=== PATIENT | female | born 1950 | race Caucasian/White ===

== ENCOUNTER 2018-12-22 09:00 | Outpatient (RCR) | payer OTHER, SELFPAY ==
--- NOTE | 2018-10-07 15:16 | PT.OIE ---
Current Diagnoses Cystocele, unspecified (10/07/18) Past Surgical History History of carpal tunnel repair History of tonsillectomy Status post appendectomy Status post knee surgery Status post tubal ligation Provider Visit Care Team Role Provider Type Darvin Bagley MD Primary Care Provider Physician Specialty: Family Practice Address: [address] [place] [address], [id number] Email: MARY Flores Attending Provider Advanced Support Architect Specialty: Medical Address: [address] [place] [address], [id number] Email: Physical Therapy Initial Evaluation PT-OP-A Visit Information Start: 10/07/18 07:32 Freq: Status: Active Protocol: Document 10/07/18 13:45 AMB (Rec: 10/07/18 13:48 AMB [id number]) Out-Patient Physical Therapy Visit Information Visit Information Visit Type Initial Evaluation Visit Start Time 13:45 Visit Stop Time 14:30 Total Visit Minutes 45 Visit Number 1 PT-OP-B Current Condition Start: 10/07/18 07:32 Freq: Status: Active Protocol: Document 10/07/18 13:45 AMB (Rec: 10/08/18 07:57 AMB [email or web address]) Current Condition History of Current Condition Onset Date chronic Current Complaints prolapse History of Current Condition Ev states she has had a little bit of stress incontinence with things like jumping since she was a kid and thought it was just normal . She attends PT because she was sitting in a deep chair a few months ago and felt a pressure in her vagina. Velasco went to her PCP and then her OBGYN and they confirmed that she has a cystocele. She also describes a history of urge incontinence which came on later in life but has also been present for some time. Triggers include running water , she feels that she needs to go immediately when she gets the urge to urinate or else she has a large leak. Her main concern is her prolapse since she has been dealing with both stress and urge incontinence for some time. She has had 3 children all vaginal deliveries with episiotomies, she does not recall incontinence being worse around her pregancies or post but it is difficult to remember. She is taking estradiol. Treatment Goals Patient/Caregiver Goals Reduce symptoms of prolapse. Prior Functional Status Baseline Function- ADL's Independent Baseline Function- Mobility Independent Current Functional Impairments (Reported) Functional Limitations- ADL's cough, sneeze, jump, urge all cause leak Functional Limitations- Mobility/Gait More aware of prolapse with sit to stand, lifting. Personal Factors Other Personal Factors That May Effect depression/anxiety, bipolar Therapy/Recovery PT-OP-C Subjective Start: 10/07/18 07:32 Freq: Status: Active Protocol: Document 10/07/18 13:45 AMB (Rec: 10/07/18 15:51 AMB [email or web address]) Patient Questionnaires Pelvic Pain and Urgency/Frequency Patient Symptom Scale Pelvic Pain Score 6 PT-OP-I Pelvic Floor Start: 10/07/18 07:32 Freq: Status: Active Protocol: Document 10/07/18 13:45 AMB (Rec: 10/08/18 07:57 AMB [email or web address]) Pelvic Floor Assessment Urine Pelvic Floor Surgery tubal ligation Urinary Symptoms Urge Sensation Prolapse Hesitancy Falling Out Feeling/Heavy Leakage Size Large Leakage Cause Cough Exercise Sneeze Urge Voiding Frequency 5x/day Nocturia 3 Bowel Bowel Surgery No Other Bowel Symptoms denies constipation Pelvic Clock Pelvic Clock Other No gaurding or pain with palpation noted Prolapse Cystocele Grade 2 Perineal Descent Resting Absent Bearing Present Contraction Ability Voluntary Contraction Weak Voluntary Relaxation Moderate Manual Muscle Testing Left 2 Manual Muscle Testing Right 2 Manual Muscle Testing Anterior 2 Manual Muscle Testing Posterior 3 Muscle Endurance (Seconds) 5 Number of Quick Contractions In 10 4 Seconds Comments Pelvic Floor Comments Pt presents with cystocele visible at baseline, more pronounced with valsalva, needed cues for contraction of pelvic floor vs abdominals. Stronger posteriorly at rectal musculature than anteriorly. PT-OP-Q Treatments Start: 10/07/18 07:32 Freq: Status: Active Protocol: Document 10/07/18 13:45 AMB (Rec: 10/07/18 15:51 AMB [email or web address]) Therapeutic Exercises Supine Exercises 2 Supine Exercise Name long holds Reps/Minutes 5x5 1 Supine Exercise Name quick flicks Reps/Minutes 10 Comments vc for lift, avoid abdominals PT-OP-T Assessment and Plan Start: 10/07/18 07:32 Freq: Status: Active Protocol: Document 10/07/18 13:45 AMB (Rec: 10/08/18 08:15 AMB [email or web address]) Physical Therapy Assessment Rehab Potential Rehabilitation Potential Good Evaluation Complexity Number of Personal Factors/Comorbidities 1-2 Number of Body Systems Impaired 1-2 Clinical Presentation at Evaluation Stable Impairments Impairments Functional Activities Strength Goals Two Impairment Pelvic floor strength Short Term Goal (STG) Ev will improve her pelvic floor strength to 3/5 in all planes. STG Duration 5 weeks Cleaner Touch Up Worker Goal (LTG) Ev will improve her pelvic floor strength so that she can contract her pelvic floor while squatting. LTG Duration 10 weeks One Impairment Continence Short Term Goal (STG) Ev will be able to delay the need to urinate for 5 minutes after initial urge. STG Duration 5 weeks Nursing Home Goal (LTG) Ev will be able to lift a bag of potting soil without leaking. LTG Duration 10 weeks Assessment Summary Assessment Ev presents with cystocele, stress and urge urinary incontinence. She presented with poor pelvic floor strength and poor body mechanics history with holding her breath with lifting. While her main concern is her prolapse, she will benefit from pelvic floor strengthening and behavioral education to reduce her incontinence episodes as well. Physical Therapy Plan Frequency and Duration Frequency of Treatment 1x/Week Duration of Treatment 10 weeks Plan of Care Start Date 10/07/18 Plan of Care End Date 12/16/18 Therapeutic Interventions Therapeutic Interventions Home Exercise Program Manual Therapy Neuromuscular Re-education Self-Care/Home Management Therapeutic Activities Therapeutic Exercises Modalities Biofeedback Electric Stimulation Next Visit Focus/Plan Next Note Type Treatment Note Next Visit Plan sEMG, review urge suppression, consider bladder diary
--- NOTE | 2018-10-07 15:20 | PT.OPPOC ---
Current Diagnoses Cystocele, unspecified (10/07/18) Provider Visit Care Team Role Provider Type Darvin Bagley MD Primary Care Provider Physician Specialty: Family Practice Address: [address] [place] [address], [id number] Email: MARY Flores Attending Provider Advanced Wrapping Clerk Specialty: Medical Address: [address] [place] [address], [id number] Email: Plan Of Care PT-OP-T Assessment and Plan Start: 10/07/18 07:32 Freq: Status: Active Protocol: Document 10/07/18 13:45 AMB (Rec: 10/08/18 08:15 AMB [email or web address]) Physical Therapy Assessment Rehab Potential Rehabilitation Potential Good Evaluation Complexity Number of Personal Factors/Comorbidities 1-2 Number of Body Systems Impaired 1-2 Clinical Presentation at Evaluation Stable Impairments Impairments Functional Activities Strength Goals Two Impairment Pelvic floor strength Short Term Goal (STG) Ev will improve her pelvic floor strength to 3/5 in all planes. STG Duration 5 weeks Pvc Loader Goal (LTG) Ev will improve her pelvic floor strength so that she can contract her pelvic floor while squatting. LTG Duration 10 weeks One Impairment Continence Short Term Goal (STG) Ev will be able to delay the need to urinate for 5 minutes after initial urge. STG Duration 5 weeks Pvc Loader Goal (LTG) Ev will be able to lift a bag of potting soil without leaking. LTG Duration 10 weeks Assessment Summary Assessment Ev presents with cystocele, stress and urge urinary incontinence. She presented with poor pelvic floor strength and poor body mechanics history with holding her breath with lifting. While her main concern is her prolapse, she will benfit from pelvic floor strengthening and behavioral education to reduce her incontinence episodes as well. Physical Therapy Plan Frequency and Duration Frequency of Treatment 1x/Week Duration of Treatment 10 weeks Plan of Care Start Date 10/07/18 Plan of Care End Date 12/16/18 Therapeutic Interventions Therapeutic Interventions Home Exercise Program Manual Therapy Neuromuscular Re-education Self-Care/Home Management Therapeutic Activities Therapeutic Exercises Modalities Biofeedback Electric Stimulation Next Visit Focus/Plan Next Note Type Treatment Note Next Visit Plan sEMG, review urge suppression, consider bladder diary Plan of Care Dates Plan of Care Start Date 10/07/18 Plan of Care End Date 12/16/18 Please Sign and Return: I have reviewed this Plan of Care and certify that the skilled therapy services above are required to meet the patient?s needs. Physician Signature Date Printed Name and Credentials Clinical Instructor Signature Printed Name and Credentials
--- NOTE | 2018-10-16 15:33 | PT.OTN ---
Current Diagnoses Cystocele, unspecified (10/16/18) Physical Therapy Treatment Note PT-OP-A Visit Information Start: 10/07/18 07:32 Freq: Status: Active Protocol: Document 10/16/18 13:45 AMB (Rec: 10/16/18 13:54 AMB [email or web address]) Out-Patient Physical Therapy Visit Information Visit Information Visit Type Treatment Note Visit Start Time 13:45 Visit Stop Time 14:30 Total Visit Minutes 45 Visit Number 2 PT-OP-B Current Condition Start: 10/07/18 07:32 Freq: Status: Active Protocol: Document 10/07/18 13:45 AMB (Rec: 10/08/18 07:57 AMB [email or web address]) Current Condition History of Current Condition Onset Date chronic Current Complaints prolapse History of Current Condition Ev states she has had a little bit of stress incontinence with things like jumping since she was a kid and thought it was just normal . She attends PT because she was sitting in a deep chair a few months ago and felt a pressure in her vagina. Velasco went to her PCP and then her OBGYN and they confirmed that she has a cystocele. She also describes a history of urge incontinence which came on later in life but has also been present for some time. Triggers include running water , she feels that she needs to go immediately when she gets the urge to urinate or else she has a large leak. Her main concern is her prolapse since she has been dealing with both stress and urge incontinence for some time. She has had 3 children all vaginal deliveries with episiotomies, she does not recall incontinence being worse around her pregancies or post but it is difficult to remember. She is taking estradiol. Treatment Goals Patient/Caregiver Goals Reduce symptoms of prolapse. Prior Functional Status Baseline Function- ADL's Independent Baseline Function- Mobility Independent Current Functional Impairments (Reported) Functional Limitations- ADL's cough, sneeze, jump, urge all cause leak Functional Limitations- Mobility/Gait More aware of prolapse with sit to stand, lifting. Personal Factors Other Personal Factors That May Effect depression/anxiety, bipolar Therapy/Recovery PT-OP-C Subjective Start: 10/07/18 07:32 Freq: Status: Active Protocol: Document 10/16/18 13:45 AMB (Rec: 10/16/18 13:54 AMB [email or web address]) OP-PT Subjective Patient Comments Patient Comments Pt states she has had a busy week, but has had tried to do her exercises once. PT-OP-I Pelvic Floor Start: 10/07/18 07:32 Freq: Status: Active Protocol: Document 10/07/18 13:45 AMB (Rec: 10/08/18 07:57 AMB [email or web address]) Pelvic Floor Assessment Urine Pelvic Floor Surgery tubal ligation Urinary Symptoms Urge Sensation Prolapse Hesitancy Falling Out Feeling/Heavy Leakage Size Large Leakage Cause Cough Exercise Sneeze Urge Voiding Frequency 5x/day Nocturia 3 Bowel Bowel Surgery No Other Bowel Symptoms denies constipation Pelvic Clock Pelvic Clock Other No gaurding or pain with palpation noted Prolapse Cystocele Grade 2 Perineal Descent Resting Absent Bearing Present Contraction Ability Voluntary Contraction Weak Voluntary Relaxation Moderate Manual Muscle Testing Left 2 Manual Muscle Testing Right 2 Manual Muscle Testing Anterior 2 Manual Muscle Testing Posterior 3 Muscle Endurance (Seconds) 5 Number of Quick Contractions In 10 4 Seconds Comments Pelvic Floor Comments Pt presents with cystocele visible at baseline, more pronounced with valsalva, needed cues for contraction of pelvic floor vs abdominals. Stronger posteriorly at rectal musculature than anteriorly. PT-OP-Q Treatments Start: 10/07/18 07:32 Freq: Status: Active Protocol: Document 10/16/18 13:45 AMB (Rec: 10/16/18 15:33 AMB [email or web address]) Neuro Re-Education Treatment Other Activities 1 Details sEMG Reps/Duration quick flicks, long holds Comments vc to relax gluteals and abdominals and contract around urethra and anal sphincters. Max 20, avg 10 baseline .5 when not compensating as much. PT-OP-T Assessment and Plan Start: 10/07/18 07:32 Freq: Status: Active Protocol: Document 10/16/18 13:45 AMB (Rec: 10/16/18 14:30 AMB [email or web address]) Physical Therapy Assessment Assessment Summary Assessment Ev has the tendency to compensate with her gluteals and abdominals, so we worked mostly on isolation this session. Encouraged her in isolation rather than trying to maximally contract at this time. Physical Therapy Plan Next Visit Focus/Plan Next Note Type Treatment Note Next Visit Plan sEMG, review urge suppression, consider bladder diary
--- NOTE | 2018-10-22 16:04 | PT.OTN ---
Current Diagnoses Cystocele, unspecified (10/22/18) Physical Therapy Treatment Note PT-OP-A Visit Information Start: 10/07/18 07:32 Freq: Status: Active Protocol: Document 10/22/18 13:45 AMB (Rec: 10/22/18 16:03 AMB [email or web address]) Out-Patient Physical Therapy Visit Information Visit Information Visit Type Treatment Note Visit Start Time 13:45 Visit Stop Time 14:30 Total Visit Minutes 45 Visit Number 3 PT-OP-B Current Condition Start: 10/07/18 07:32 Freq: Status: Active Protocol: Document 10/07/18 13:45 AMB (Rec: 10/08/18 07:57 AMB [email or web address]) Current Condition History of Current Condition Onset Date chronic Current Complaints prolapse History of Current Condition Ev states she has had a little bit of stress incontinence with things like jumping since she was a kid and thought it was just normal . She attends PT because she was sitting in a deep chair a few months ago and felt a pressure in her vagina. Velasco went to her PCP and then her OBGYN and they confirmed that she has a cystocele. She also describes a history of urge incontinence which came on later in life but has also been present for some time. Triggers include running water , she feels that she needs to go immediately when she gets the urge to urinate or else she has a large leak. Her main concern is her prolapse since she has been dealing with both stress and urge incontinence for some time. She has had 3 children all vaginal deliveries with episiotomies, she does not recall incontinence being worse around her pregancies or post but it is difficult to remember. She is taking estradiol. Treatment Goals Patient/Caregiver Goals Reduce symptoms of prolapse. Prior Functional Status Baseline Function- ADL's Independent Baseline Function- Mobility Independent Current Functional Impairments (Reported) Functional Limitations- ADL's cough, sneeze, jump, urge all cause leak Functional Limitations- Mobility/Gait More aware of prolapse with sit to stand, lifting. Personal Factors Other Personal Factors That May Effect depression/anxiety, bipolar Therapy/Recovery PT-OP-C Subjective Start: 10/07/18 07:32 Freq: Status: Active Protocol: Document 10/22/18 13:45 AMB (Rec: 10/22/18 16:03 AMB [email or web address]) OP-PT Subjective Patient Comments Patient Comments Pt notices less urgency lately , able to make it to the toilet. Did feel a worsening of prolapse with lifting/ moving a recliner. PT-OP-I Pelvic Floor Start: 10/07/18 07:32 Freq: Status: Active Protocol: Document 10/07/18 13:45 AMB (Rec: 10/08/18 07:57 AMB [email or web address]) Pelvic Floor Assessment Urine Pelvic Floor Surgery tubal ligation Urinary Symptoms Urge Sensation Prolapse Hesitancy Falling Out Feeling/Heavy Leakage Size Large Leakage Cause Cough Exercise Sneeze Urge Voiding Frequency 5x/day Nocturia 3 Bowel Bowel Surgery No Other Bowel Symptoms denies constipation Pelvic Clock Pelvic Clock Other No gaurding or pain with palpation noted Prolapse Cystocele Grade 2 Perineal Descent Resting Absent Bearing Present Contraction Ability Voluntary Contraction Weak Voluntary Relaxation Moderate Manual Muscle Testing Left 2 Manual Muscle Testing Right 2 Manual Muscle Testing Anterior 2 Manual Muscle Testing Posterior 3 Muscle Endurance (Seconds) 5 Number of Quick Contractions In 10 4 Seconds Comments Pelvic Floor Comments Pt presents with cystocele visible at baseline, more pronounced with valsalva, needed cues for contraction of pelvic floor vs abdominals. Stronger posteriorly at rectal musculature than anteriorly. PT-OP-Q Treatments Start: 10/07/18 07:32 Freq: Status: Active Protocol: Document 10/22/18 13:45 AMB (Rec: 10/22/18 16:03 AMB [email or web address]) Therapeutic Exercises Supine Exercises 3 Supine Exercise Name roll ins Reps/Minutes 10 Neuro Re-Education Treatment Other Activities 2 Details positioning Comments to relieve prolapse with posterior pelvic tilt 1 Details sEMG Reps/Duration quick flicks, long holds Comments Max 24, avg 14 baseline, better ability to isolate today. PT-OP-T Assessment and Plan Start: 10/07/18 07:32 Freq: Status: Active Protocol: Document 10/22/18 13:45 AMB (Rec: 10/22/18 16:03 AMB [email or web address]) Physical Therapy Assessment Assessment Summary Assessment Ev tolerated more exercises today with better isolation, work in functional movements/positions as tolerated. Physical Therapy Plan Next Visit Focus/Plan Next Note Type Treatment Note Next Visit Plan sEMG, review urge suppression, consider bladder diary
--- NOTE | 2018-10-28 16:19 | PT.OTN ---
Current Diagnoses Cystocele, unspecified (10/28/18) Physical Therapy Treatment Note PT-OP-A Visit Information Start: 10/07/18 07:32 Freq: Status: Active Protocol: Document 10/28/18 13:45 AMB (Rec: 10/28/18 16:19 AMB [email or web address]) Out-Patient Physical Therapy Visit Information Visit Information Visit Type Treatment Note Visit Start Time 13:45 Visit Stop Time 14:30 Total Visit Minutes 45 Visit Number 4 PT-OP-B Current Condition Start: 10/07/18 07:32 Freq: Status: Active Protocol: Document 10/07/18 13:45 AMB (Rec: 10/08/18 07:57 AMB [email or web address]) Current Condition History of Current Condition Onset Date chronic Current Complaints prolapse History of Current Condition Ev states she has had a little bit of stress incontinence with things like jumping since she was a kid and thought it was just normal . She attends PT because she was sitting in a deep chair a few months ago and felt a pressure in her vagina. Velasco went to her PCP and then her OBGYN and they confirmed that she has a cystocele. She also describes a history of urge incontinence which came on later in life but has also been present for some time. Triggers include running water , she feels that she needs to go immediately when she gets the urge to urinate or else she has a large leak. Her main concern is her prolapse since she has been dealing with both stress and urge incontinence for some time. She has had 3 children all vaginal deliveries with episiotomies, she does not recall incontinence being worse around her pregancies or post but it is difficult to remember. She is taking estradiol. Treatment Goals Patient/Caregiver Goals Reduce symptoms of prolapse. Prior Functional Status Baseline Function- ADL's Independent Baseline Function- Mobility Independent Current Functional Impairments (Reported) Functional Limitations- ADL's cough, sneeze, jump, urge all cause leak Functional Limitations- Mobility/Gait More aware of prolapse with sit to stand, lifting. Personal Factors Other Personal Factors That May Effect depression/anxiety, bipolar Therapy/Recovery PT-OP-C Subjective Start: 10/07/18 07:32 Freq: Status: Active Protocol: Document 10/28/18 13:45 AMB (Rec: 10/28/18 16:19 AMB [email or web address]) OP-PT Subjective Patient Comments Patient Comments Pt reports she has been busy and didn't get a chance to do exercises this last week. Continuing to feel prolapse is about the same as last week. PT-OP-I Pelvic Floor Start: 10/07/18 07:32 Freq: Status: Active Protocol: Document 10/07/18 13:45 AMB (Rec: 10/08/18 07:57 AMB [email or web address]) Pelvic Floor Assessment Urine Pelvic Floor Surgery tubal ligation Urinary Symptoms Urge Sensation Prolapse Hesitancy Falling Out Feeling/Heavy Leakage Size Large Leakage Cause Cough Exercise Sneeze Urge Voiding Frequency 5x/day Nocturia 3 Bowel Bowel Surgery No Other Bowel Symptoms denies constipation Pelvic Clock Pelvic Clock Other No gaurding or pain with palpation noted Prolapse Cystocele Grade 2 Perineal Descent Resting Absent Bearing Present Contraction Ability Voluntary Contraction Weak Voluntary Relaxation Moderate Manual Muscle Testing Left 2 Manual Muscle Testing Right 2 Manual Muscle Testing Anterior 2 Manual Muscle Testing Posterior 3 Muscle Endurance (Seconds) 5 Number of Quick Contractions In 10 4 Seconds Comments Pelvic Floor Comments Pt presents with cystocele visible at baseline, more pronounced with valsalva, needed cues for contraction of pelvic floor vs abdominals. Stronger posteriorly at rectal musculature than anteriorly. PT-OP-Q Treatments Start: 10/07/18 07:32 Freq: Status: Active Protocol: Document 10/28/18 13:45 AMB (Rec: 10/28/18 16:19 AMB [email or web address]) Therapeutic Exercises Sitting Exercises 1 Sitting Exercise Name seated quick flicks and long holds Reps/Minutes 10 ea Standing Exercises 2 Standing Exercise Name squats and lunges with long hold Reps/Minutes 10 ea 1 Standing Exercise Name standing quick flicks and long holds Reps/Minutes 10 ea Neuro Re-Education Treatment Other Activities 1 Details NMES Reps/Duration long holds 10 seconds PT-OP-T Assessment and Plan Start: 10/07/18 07:32 Freq: Status: Active Protocol: Document 10/28/18 13:45 AMB (Rec: 10/28/18 16:19 AMB [email or web address]) Physical Therapy Assessment Assessment Summary Assessment Ev didn't feel the NMES was very helpful, but reported she was able to contract pelvic floor with squats and mini lunges. Physical Therapy Plan Next Visit Focus/Plan Next Note Type Treatment Note Next Visit Plan progress functional strengthening
--- NOTE | 2018-11-04 16:22 | PT.OTN ---
Current Diagnoses Cystocele, unspecified (11/04/18) Physical Therapy Treatment Note PT-OP-A Visit Information Start: 10/07/18 07:32 Freq: Status: Active Protocol: Document 11/04/18 13:45 AMB (Rec: 11/04/18 16:21 AMB [email or web address]) Out-Patient Physical Therapy Visit Information Visit Information Visit Type Treatment Note Visit Start Time 13:45 Visit Stop Time 14:30 Total Visit Minutes 45 Visit Number 5 PT-OP-B Current Condition Start: 10/07/18 07:32 Freq: Status: Active Protocol: Document 10/07/18 13:45 AMB (Rec: 10/08/18 07:57 AMB [email or web address]) Current Condition History of Current Condition Onset Date chronic Current Complaints prolapse History of Current Condition Ev states she has had a little bit of stress incontinence with things like jumping since she was a kid and thought it was just normal . She attends PT because she was sitting in a deep chair a few months ago and felt a pressure in her vagina. Velasco went to her PCP and then her OBGYN and they confirmed that she has a cystocele. She also describes a history of urge incontinence which came on later in life but has also been present for some time. Triggers include running water , she feels that she needs to go immediately when she gets the urge to urinate or else she has a large leak. Her main concern is her prolapse since she has been dealing with both stress and urge incontinence for some time. She has had 3 children all vaginal deliveries with episiotomies, she does not recall incontinence being worse around her pregancies or post but it is difficult to remember. She is taking estradiol. Treatment Goals Patient/Caregiver Goals Reduce symptoms of prolapse. Prior Functional Status Baseline Function- ADL's Independent Baseline Function- Mobility Independent Current Functional Impairments (Reported) Functional Limitations- ADL's cough, sneeze, jump, urge all cause leak Functional Limitations- Mobility/Gait More aware of prolapse with sit to stand, lifting. Personal Factors Other Personal Factors That May Effect depression/anxiety, bipolar Therapy/Recovery PT-OP-C Subjective Start: 10/07/18 07:32 Freq: Status: Active Protocol: Document 11/04/18 13:45 AMB (Rec: 11/04/18 16:21 AMB [email or web address]) OP-PT Subjective Patient Comments Patient Comments Pt has had a better week, but she noticed that yesterday with walking up a hill the prolapse seemed worse, but today it seems fine. PT-OP-I Pelvic Floor Start: 10/07/18 07:32 Freq: Status: Active Protocol: Document 10/07/18 13:45 AMB (Rec: 10/08/18 07:57 AMB [email or web address]) Pelvic Floor Assessment Urine Pelvic Floor Surgery tubal ligation Urinary Symptoms Urge Sensation Prolapse Hesitancy Falling Out Feeling/Heavy Leakage Size Large Leakage Cause Cough Exercise Sneeze Urge Voiding Frequency 5x/day Nocturia 3 Bowel Bowel Surgery No Other Bowel Symptoms denies constipation Pelvic Clock Pelvic Clock Other No gaurding or pain with palpation noted Prolapse Cystocele Grade 2 Perineal Descent Resting Absent Bearing Present Contraction Ability Voluntary Contraction Weak Voluntary Relaxation Moderate Manual Muscle Testing Left 2 Manual Muscle Testing Right 2 Manual Muscle Testing Anterior 2 Manual Muscle Testing Posterior 3 Muscle Endurance (Seconds) 5 Number of Quick Contractions In 10 4 Seconds Comments Pelvic Floor Comments Pt presents with cystocele visible at baseline, more pronounced with valsalva, needed cues for contraction of pelvic floor vs abdominals. Stronger posteriorly at rectal musculature than anteriorly. PT-OP-Q Treatments Start: 10/07/18 07:32 Freq: Status: Active Protocol: Document 11/04/18 14:30 AMB (Rec: 11/06/18 16:22 AMB [email or web address]) Neuro Re-Education Treatment Other Activities 1 Details sEMG Reps/Duration quick flicks, long holds Comments cough pushes sensor out, despite trying to activate pelvic floor. PT-OP-T Assessment and Plan Start: 10/07/18 07:32 Freq: Status: Active Protocol: Document 11/04/18 13:45 AMB (Rec: 11/04/18 16:21 AMB [email or web address]) Physical Therapy Assessment Assessment Summary Assessment Ev did well today with jenaro pelvic floor in supine, did feel that cough continues to make sensor fall out despite trying to contract pelvic floor. Physical Therapy Plan Next Visit Focus/Plan Next Note Type Treatment Note Next Visit Plan progress functional strengthening
--- NOTE | 2018-11-11 16:08 | PT.OTN ---
Current Diagnoses Cystocele, unspecified (11/11/18) Physical Therapy Treatment Note PT-OP-A Visit Information Start: 10/07/18 07:32 Freq: Status: Active Protocol: Document 11/11/18 13:45 AMB (Rec: 11/11/18 16:08 AMB [email or web address]) Out-Patient Physical Therapy Visit Information Visit Information Visit Type Treatment Note Visit Start Time 13:45 Visit Stop Time 14:33 Total Visit Minutes 45 Visit Number 6 PT-OP-B Current Condition Start: 10/07/18 07:32 Freq: Status: Active Protocol: Document 10/07/18 13:45 AMB (Rec: 10/08/18 07:57 AMB [email or web address]) Current Condition History of Current Condition Onset Date chronic Current Complaints prolapse History of Current Condition Ev states she has had a little bit of stress incontinence with things like jumping since she was a kid and thought it was just normal . She attends PT because she was sitting in a deep chair a few months ago and felt a pressure in her vagina. Velasco went to her PCP and then her OBGYN and they confirmed that she has a cystocele. She also describes a history of urge incontinence which came on later in life but has also been present for some time. Triggers include running water , she feels that she needs to go immediately when she gets the urge to urinate or else she has a large leak. Her main concern is her prolapse since she has been dealing with both stress and urge incontinence for some time. She has had 3 children all vaginal deliveries with episiotomies, she does not recall incontinence being worse around her pregancies or post but it is difficult to remember. She is taking estradiol. Treatment Goals Patient/Caregiver Goals Reduce symptoms of prolapse. Prior Functional Status Baseline Function- ADL's Independent Baseline Function- Mobility Independent Current Functional Impairments (Reported) Functional Limitations- ADL's cough, sneeze, jump, urge all cause leak Functional Limitations- Mobility/Gait More aware of prolapse with sit to stand, lifting. Personal Factors Other Personal Factors That May Effect depression/anxiety, bipolar Therapy/Recovery PT-OP-C Subjective Start: 10/07/18 07:32 Freq: Status: Active Protocol: Document 11/11/18 13:45 AMB (Rec: 11/11/18 16:08 AMB [email or web address]) OP-PT Subjective Patient Comments Patient Comments Pt continues to feel prolapse, not all the time, but most of the time, she has tried to be very mindful of how she is lifting. PT-OP-I Pelvic Floor Start: 10/07/18 07:32 Freq: Status: Active Protocol: Document 10/07/18 13:45 AMB (Rec: 10/08/18 07:57 AMB [email or web address]) Pelvic Floor Assessment Urine Pelvic Floor Surgery tubal ligation Urinary Symptoms Urge Sensation Prolapse Hesitancy Falling Out Feeling/Heavy Leakage Size Large Leakage Cause Cough Exercise Sneeze Urge Voiding Frequency 5x/day Nocturia 3 Bowel Bowel Surgery No Other Bowel Symptoms denies constipation Pelvic Clock Pelvic Clock Other No gaurding or pain with palpation noted Prolapse Cystocele Grade 2 Perineal Descent Resting Absent Bearing Present Contraction Ability Voluntary Contraction Weak Voluntary Relaxation Moderate Manual Muscle Testing Left 2 Manual Muscle Testing Right 2 Manual Muscle Testing Anterior 2 Manual Muscle Testing Posterior 3 Muscle Endurance (Seconds) 5 Number of Quick Contractions In 10 4 Seconds Comments Pelvic Floor Comments Pt presents with cystocele visible at baseline, more pronounced with valsalva, needed cues for contraction of pelvic floor vs abdominals. Stronger posteriorly at rectal musculature than anteriorly. PT-OP-Q Treatments Start: 10/07/18 07:32 Freq: Status: Active Protocol: Document 11/11/18 13:45 AMB (Rec: 11/11/18 16:08 AMB [email or web address]) Therapeutic Exercises Sitting Exercises 2 Sitting Exercise Name seated march on 65 cm ball Reps/Minutes 5 min 1 Sitting Exercise Name seated quick flicks and long holds Reps/Minutes 10 ea Standing Exercises 2 Standing Exercise Name squats and lunges with long hold Reps/Minutes 10 ea 1 Standing Exercise Name standing quick flicks and long holds Reps/Minutes 10 ea Neuro Re-Education Treatment Other Activities 2 Details positioning Comments to relieve prolapse with posterior pelvic tilt 1 Details sEMG Reps/Duration quick flicks, long holds PT-OP-T Assessment and Plan Start: 10/07/18 07:32 Freq: Status: Active Protocol: Document 11/11/18 13:45 AMB (Rec: 11/11/18 16:08 AMB [email or web address]) Physical Therapy Assessment Assessment Summary Assessment Ev is doing better with jenaro pelvic floor with movement on therapy ball or with squatting. Physical Therapy Plan Next Visit Focus/Plan Next Note Type Progress Note Next Visit Plan progress functional strengthening
--- NOTE | 2018-12-22 15:44 | PT.OTN ---
Current Diagnoses Cystocele, unspecified (12/22/18) Physical Therapy Treatment Note PT-OP-A Visit Information Start: 10/07/18 07:32 Freq: Status: Active Protocol: Document 12/22/18 09:00 AMB (Rec: 12/22/18 09:50 AMB [id number]) Out-Patient Physical Therapy Visit Information Visit Information Visit Type Treatment Note Visit Start Time 09:00 Visit Stop Time 09:45 Total Visit Minutes 45 Visit Number 7 PT-OP-B Current Condition Start: 10/07/18 07:32 Freq: Status: Active Protocol: Document 10/07/18 13:45 AMB (Rec: 10/08/18 07:57 AMB [email or web address]) Current Condition History of Current Condition Onset Date chronic Current Complaints prolapse History of Current Condition Ev states she has had a little bit of stress incontinence with things like jumping since she was a kid and thought it was just normal . She attends PT because she was sitting in a deep chair a few months ago and felt a pressure in her vagina. Velasco went to her PCP and then her OBGYN and they confirmed that she has a cystocele. She also describes a history of urge incontinence which came on later in life but has also been present for some time. Triggers include running water , she feels that she needs to go immediately when she gets the urge to urinate or else she has a large leak. Her main concern is her prolapse since she has been dealing with both stress and urge incontinence for some time. She has had 3 children all vaginal deliveries with episiotomies, she does not recall incontinence being worse around her pregancies or post but it is difficult to remember. She is taking estradiol. Treatment Goals Patient/Caregiver Goals Reduce symptoms of prolapse. Prior Functional Status Baseline Function- ADL's Independent Baseline Function- Mobility Independent Current Functional Impairments (Reported) Functional Limitations- ADL's cough, sneeze, jump, urge all cause leak Functional Limitations- Mobility/Gait More aware of prolapse with sit to stand, lifting. Personal Factors Other Personal Factors That May Effect depression/anxiety, bipolar Therapy/Recovery PT-OP-C Subjective Start: 10/07/18 07:32 Freq: Status: Active Protocol: Document 12/22/18 09:00 AMB (Rec: 12/22/18 09:50 AMB [id number]) OP-PT Subjective Patient Comments Patient Comments Pt tried to mow the lawn and rake yesterday and that made her feel the prolapse more and she can still feel a little more today. PT-OP-I Pelvic Floor Start: 10/07/18 07:32 Freq: Status: Active Protocol: Document 10/07/18 13:45 AMB (Rec: 10/08/18 07:57 AMB [email or web address]) Pelvic Floor Assessment Urine Pelvic Floor Surgery tubal ligation Urinary Symptoms Urge Sensation,Prolapse, Hesitancy,Falling Out Feeling/ Heavy Leakage Size Large Leakage Cause Cough,Exercise,Sneeze,Urge Voiding Frequency 5x/day Nocturia 3 Bowel Bowel Surgery No Other Bowel Symptoms denies constipation Pelvic Clock Pelvic Clock Other No gaurding or pain with palpation noted Prolapse Cystocele Grade 2 Perineal Descent Resting Absent Bearing Present Contraction Ability Voluntary Contraction Weak Voluntary Relaxation Moderate Manual Muscle Testing Left 2 Manual Muscle Testing Right 2 Manual Muscle Testing Anterior 2 Manual Muscle Testing Posterior 3 Muscle Endurance (Seconds) 5 Number of Quick Contractions In 10 4 Seconds Comments Pelvic Floor Comments Pt presents with cystocele visible at baseline, more pronounced with valsalva, needed cues for contraction of pelvic floor vs abdominals. Stronger posteriorly at rectal musculature than anteriorly. PT-OP-Q Treatments Start: 10/07/18 07:32 Freq: Status: Active Protocol: Document 12/22/18 09:00 AMB (Rec: 12/22/18 15:41 AMB [email or web address]) Therapeutic Exercises Supine Exercises 3 Supine Exercise Name bridge Comments with education on prolapse Sitting Exercises 1 Sitting Exercise Name seated quick flicks and long holds Reps/Minutes 10 ea Standing Exercises 2 Standing Exercise Name squats and lunges with long hold Reps/Minutes 10 ea 1 Standing Exercise Name standing quick flicks and long holds Reps/Minutes 10 ea Neuro Re-Education Treatment Other Activities 2 Details positioning Comments to relieve prolapse with posterior pelvic tilt PT-OP-T Assessment and Plan Start: 10/07/18 07:32 Freq: Status: Active Protocol: Document 12/22/18 09:00 AMB (Rec: 12/22/18 15:35 AMB [email or web address]) Physical Therapy Assessment Goals Two Impairment Pelvic floor strength Short Term Goal (STG) Ev will improve her pelvic floor strength to 3/5 in all planes. STG Duration MET Alf Goal (LTG) Ev will improve her pelvic floor strength so that she can contract her pelvic floor while squatting. LTG Duration MET One Impairment Continence Short Term Goal (STG) Ev will be able to delay the need to urinate for 5 minutes after initial urge. STG Duration MET Club Waiter/Waitress Goal (LTG) Ev will be able to lift a bag of potting soil without leaking. LTG Duration NOT MET Assessment Summary Assessment Ev has had some improvement with physical therapy, but continues to have prolapse symptoms with more aggressive physical activity ( like mowing her lawn). She feels that she can do her exercises appropriately, and that her strength has improved , but there is no way to keep the bladder up while exerting herself. Encouraged Ev to increase the frequency of her exercises and discuss possibly pessary with Dr. Pa. She is not interested in one that she would have to have inserted, but if she could take it in and out herself that would be ok. She will continue her exercises independently at this time. Physical Therapy Plan Frequency and Duration Frequency of Treatment 1x/Week Duration of Treatment 2 weeks Plan of Care Start Date 12/16/18 Plan of Care End Date 12/30/18 Therapeutic Interventions Therapeutic Interventions Home Exercise Program,Manual Therapy,Neuromuscular Re- education,Self-Care/Home Management,Therapeutic Activities,Therapeutic Exercises Modalities Biofeedback,Electric Stimulation Discharge Physical Therapy Discharge Reasons Plateau in Progress
--- NOTE | 2018-12-22 15:45 | PT.OPPOC ---
Current Diagnoses Cystocele, unspecified (12/22/18) Visit Care Team Role Provider Type Darvin Bagley MD Primary Care Provider Physician Specialty: Family Practice Address: [address] [place] [address], [id number] Email: [email or web address] MARY Flores Attending Provider Advanced Colon And Rectal Surgeon Specialty: Medical Address: [address] [place] [address], [place], [address] Email: [email or web address] Plan Of Care PT-OP-T Assessment and Plan Start: 10/07/18 07:32 Freq: Status: Active Protocol: Document 12/22/18 09:00 AMB (Rec: 12/22/18 15:35 AMB [email or web address]) Physical Therapy Assessment Goals Two Impairment Pelvic floor strength Short Term Goal (STG) Ev will improve her pelvic floor strength to 3/5 in all planes. STG Duration MET Penitentiary Goal (LTG) Ev will improve her pelvic floor strength so that she can contract her pelvic floor while squatting. LTG Duration MET One Impairment Continence Short Term Goal (STG) Ev will be able to delay the need to urinate for 5 minutes after initial urge. STG Duration MET Spiral Runner Goal (LTG) Ev will be able to lift a bag of potting soil without leaking. LTG Duration NOT MET Assessment Summary Assessment Ev has had some improvement with physical therapy, but continues to have prolapse symptoms with more aggressive physical activity ( like mowing her lawn). She feels that she can do her exercises appropriately, and that her strength has improved , but there is no way to keep the bladder up while exerting herself. Encouraged Ev to increase the frequency of her exercises and discuss possibly pessary with Dr. Pa. She is not interested in one that she would have to have inserted, but if she could take it in and out herself that would be ok. She will continue her exercises independently at this time. Physical Therapy Plan Frequency and Duration Frequency of Treatment 1x/Week Duration of Treatment 2 weeks Plan of Care Start Date 12/16/18 Plan of Care End Date 12/30/18 Therapeutic Interventions Therapeutic Interventions Home Exercise Program,Manual Therapy,Neuromuscular Re- education,Self-Care/Home Management,Therapeutic Activities,Therapeutic Exercises Modalities Biofeedback,Electric Stimulation Discharge Physical Therapy Discharge Reasons Plateau in Progress Plan of Care Dates Plan of Care Start Date 12/16/18 Plan of Care End Date 12/30/18
== END 2018-12-22 10:00 ==
LOC: PHYS 09:00
PROVIDERS: PCP Family Medicine; Visit Provider Nurse Practitioner Family
DX: N81.10 Cystocele, unspecified (principal)
CPT/HCPCS: 97110; 97112; 97140; 97161

== ENCOUNTER 2019-02-19 18:23 | Emergency (ER) | payer OTHER, SELFPAY ==
[2019-02-19 18:25] VITALS: BP 152/79; PULSE 62; RESP 18; TEMP 36.9; O2SAT 100
--- NOTE | 2019-02-19 18:42 | ED.CHESTPAIN ---
HPI - Chest Pain General Chief Complaint: Chest Pain Stated Complaint: chest pressure, says no pain Time Seen by Provider: 02/19/19 18:25 Source: patient Mode of arrival: Ambulatory Limitations: no limitations History of Present Illness HPI narrative: 68-year-old female nonsmoker presents at the request [facility] paramedics for evaluation of chest pressure which has been present for 4 days. She is unclear what she was doing when her symptoms started but states that she seems to become increasingly short of breath with exertion. Additionally she complains of dizziness upon standing, which she states is more like a lightheadedness and she feels like she may have a syncopal episode. She has some nausea but this seems unrelated. She denies any recent travel, history of blood clots or cancer. She denies any history of pulmonary embolism. She denies any history of similar symptoms but does state that years ago she had a stress test because she felt as if she were kicked in the chest by a mule. She was given full-dose aspirin when she was evaluated by the medics on [place] whom than suggested she come get checked out. MD complaint: chest pain Onset (ago): day(s) Duration: constant Onset: during rest and during exertion Pain location: substernal Severity: moderate Quality: aching Pain radiation: none Relieving factors: nothing Exacerbating factors: exertion and movement Associated symptoms: nausea and dyspnea Treatments prior to arrival chest pain: aspirin Related Data On Oral Contraceptives: No Home Medications Medication Instructions Recorded Confirmed lamotrigine 100 mg tablet 150 mg PO DAILY tab 09/09/18 12/22/18 Previous Rx's Medication Instructions Recorded [estradiol pearles] 10 mcg VAGINAL HS #90 amp 11/05/16 alprazolam 0.25 mg tablet 0.25 mg PO BID PRN #60 tab 02/26/18 Allergies Allergy/AdvReac Type Severity Reaction Status Date / Time No Known Drug Allergies Allergy Unverified 12/22/18 10:22 Review of Systems Constitutional Constitutional: Denies chills, Denies fatigue, Denies fever(s), Denies frequent falls, Denies lethargy and Denies weakness Eyes Eyes: Denies change in vision, Denies eye discharge, Denies irritation and Denies loss of vision ENT Ears, Nose, Mouth, and Throat: Denies change in voice, Denies dizziness, Denies neck pain, Denies sore throat and Denies throat swelling Cardiovascular Cardiovascular: Reports chest pain, Denies irregular heart rhythm, Reports lightheadedness, Denies palpitations, Reports dyspnea, Reports dyspnea on exertion and Denies orthopnea Respiratory Respiratory: Denies cough, Reports dyspnea, Reports dyspnea on exertion and Denies wheezing Gastrointestinal Gastrointestinal: Denies abdominal pain, Denies change in bowel habits, Denies diarrhea, Reports nausea and Denies vomiting Genitourinary Genitourinary: Denies hematuria, Denies flank pain, Denies urinary incontinence and Denies urinary urgency Musculoskeletal Musculoskeletal: Denies back pain, Denies muscle weakness, Denies neck pain, Denies numbness and Denies tingling Integumentary/Breasts Skin/Breast: Denies pruritus, Denies erythema, Denies rash and Denies wounds Neurologic Neurologic: Denies behavioral changes, Denies confusion, Denies dizziness, Denies frequent falls, Denies loss of vision, Denies numbness, Denies tingling and Denies weakness Psychiatric Psychiatric: Denies anxiety, Denies behavioral changes, Denies confusion, Denies depression, Denies homicidal ideation and Denies suicidal ideation Endocrine Endocrine: Denies fatigue, Denies flushing and Denies palpitations Hematologic/Lymphatic Hematologic/Lymphatic: Denies easy bruising Allergic/Immunologic Allergic/Immunologic: Denies urticaria, Denies throat swelling and Denies wheezing Patient History Surgical History (Updated 07/23/17 @ 06:07 by Conversion Provider) History of carpal tunnel repair History of tonsillectomy Status post appendectomy Status post knee surgery Status post tubal ligation Family History (Updated 09/30/14 @ 00:00 by Conversion Provider) Brother Age: 70 Heart attack Heart disease Grandfather Heart disease Mother Heart disease Social History Smoking Status: Never smoker Exam Narrative Exam Narrative: GENERAL: [ 68] year old patient appears stated age. Well-nourished, well-developed patient, in mild distress. HEAD: Atraumatic. Normocephalic. EYES: Pupils equal round and reactive. Extraocular motions intact. No scleral icterus. No injection or drainage. ENT: Nose without bleeding, purulent drainage. Throat without erythema, tonsillar hypertrophy or exudate. Airway patent. NECK: Trachea midline. Non tender CARDIOVASCULAR: Regular rate and rhythm without murmurs, gallops, or rubs. RESPIRATORY: Clear to auscultation. Breath sounds equal bilaterally. No wheezes, rales, or rhonchi. GASTROINTESTINAL: Abdomen soft, non-tender, nondistended. EXTREMITIES: No edema or joint tenderness. BACK: Nontender without deformity or crepitance. No flank tenderness. NEURO: AOx3. SKIN: No rash or erythema of visible areas Initial Vital Signs Initial Vital Signs: Vital Signs Temperature 98.5 F 02/19/19 18:25 Pulse Rate 62 02/19/19 18:25 Respiratory Rate 18 02/19/19 18:25 Blood Pressure 152/79 H 02/19/19 18:25 Pulse Oximetry 100 02/19/19 18:25 Course Orders Ordered: ED Orders 02/19/19 18:32 EKG-12 Lead Routine 02/19/19 18:45 B Type Natriuretic Peptide Stat Complete Blood Count AUTO DIFF Stat Comprehensive Metabolic Panel Stat D Dimer Stat Lipase Stat Troponin & CK Cardiac Panel Stat 02/19/19 18:48 XR chest 1V Stat Discontinued Medications Sodium Chloride (Normal Saline 0.9%) 1,000 mls @ 150 mls/hr IV CONT RYAN Last Admin: 02/19/19 19:47 Dose: Not Given Documented by: JADYN Vital Signs Vital signs: Vital Signs - 8 hr 02/19/19 18:25 02/19/19 19:30 Temperature 98.5 F Pulse Rate 62 54 L Respiratory Rate 18 18 Blood Pressure 152/79 H Blood Pressure [Right Arm] 134/76 Pulse Oximetry 100 97 MDM - Chest Pain Lab Data Attestation: I reviewed the patient's lab results. Result diagrams: 02/19/19 18:45 02/19/19 18:45 Labs: Lab Results 02/19/19 02/19/19 02/19/19 Range/Units 18:45 18:45 18:45 WBC 7.5 (4.5-11.0) X10^3/uL RBC 4.88 (4.0-5.2) X10^6/uL Hgb 13.6 (12.0-16.0) g/dL Hct 38.7 (36-46) % MCV 79.3 L (80-100) fL MCH 27.8 (26-34) PG MCHC 35.1 (30-36) % RDW 13.2 (11.6-14.8) % Plt Count 249 (150-400) X10^3/uL Neut % (Auto) 59.9 (50-75) % Lymph % (Auto) 28.5 (25-40) % [place] % (Auto) 9.0 (3-14) % Eos % (Auto) 1.9 L (2-4) % Baso % (Auto) 0.7 (0-2) % Neut # (Auto) 4500 (5785-9945) /uL Lymph # (Auto) 2100 (2147-5516) /uL [place] # (Auto) 700 (0-900) /uL Eos # (Auto) 100 (0-450) /uL Baso # (Auto) 100 (0-100) /uL D-Dimer < 200 (<230) ng/mL Sodium (137-145) mmol/L Potassium (3.4-5.1) mmol/L Chloride (98-107) mmol/L Carbon Dioxide (22-32) mmol/L BUN (7-17) mg/dL Creatinine (0.52-1.04) mg/dL Estimated GFR (>60) mL/min BUN/Creatinine Ratio (6-22) Glucose (80-110) mg/dL Calcium (8.4-10.2) mg/dL Total Bilirubin (0.2-1.3) mg/dL AST (14-36) IU/L ALT (<35) IU/L Alkaline Phosphatase (38-126) U/L Total Creatine Kinase (30-135) U/L CK-MB (CK-2) (<2.37) ng/mL CK-MB (CK-2) Rel Index (1.5-5.0) % Troponin I (0.01-0.034) ng/mL B-Natriuretic Peptide < 100 (<100) Total Protein (6.3-8.2) g/dL Albumin (3.5-5.0) g/dL Globulin (1.7-4.1) g/dL Albumin/Globulin Ratio (1.0-2.8) Lipase (23-300) U/L 02/19/19 Range/Units 18:45 WBC (4.5-11.0) X10^3/uL RBC (4.0-5.2) X10^6/uL Hgb (12.0-16.0) g/dL Hct (36-46) % MCV (80-100) fL MCH (26-34) PG MCHC (30-36) % RDW (11.6-14.8) % Plt Count (150-400) X10^3/uL Neut % (Auto) (50-75) % Lymph % (Auto) (25-40) % [place] % (Auto) (3-14) % Eos % (Auto) (2-4) % Baso % (Auto) (0-2) % Neut # (Auto) (6857-8119) /uL Lymph # (Auto) (4396-0085) /uL [place] # (Auto) (0-900) /uL Eos # (Auto) (0-450) /uL Baso # (Auto) (0-100) /uL D-Dimer (<230) ng/mL Sodium 137 (137-145) mmol/L Potassium 3.8 (3.4-5.1) mmol/L Chloride 104 (98-107) mmol/L Carbon Dioxide 27 (22-32) mmol/L BUN 21 H (7-17) mg/dL Creatinine 1.00 (0.52-1.04) mg/dL Estimated GFR 55.0 L (>60) mL/min BUN/Creatinine Ratio 21.0 (6-22) Glucose 96 (80-110) mg/dL Calcium 9.1 (8.4-10.2) mg/dL Total Bilirubin 0.4 (0.2-1.3) mg/dL AST 27 (14-36) IU/L ALT 18 (<35) IU/L Alkaline Phosphatase 62 (38-126) U/L Total Creatine Kinase 126 (30-135) U/L CK-MB (CK-2) 1.28 (<2.37) ng/mL CK-MB (CK-2) Rel Index 1.0 L (1.5-5.0) % Troponin I < 0.012 (0.01-0.034) ng/mL B-Natriuretic Peptide (<100) Total Protein 7.0 (6.3-8.2) g/dL Albumin 4.1 (3.5-5.0) g/dL Globulin 2.9 (1.7-4.1) g/dL Albumin/Globulin Ratio 1.4 (1.0-2.8) Lipase 120 (23-300) U/L Imaging Data Chest x-ray: Radiologist's impression: [address] [address] XRay Report Signed Patient: Ev Coleman MMR#: [id number] : 9Acct:[id number] Age/Sex: 68 / FDate of Service: 02/19/19 Loc: ED Accession Number: [id number] Procedure: XR chest 1V Ordering Provider: Leo Mejia D.O. PROCEDURE: XR CHEST 1V INDICATIONS: chest fullness, SOB TECHNIQUE: One view of the chest was acquired. COMPARISON: None. FINDINGS: Surgical changes and devices: None. Lungs and pleura: Lungs are clear. No pleural effusions or pneumothorax. Mediastinum: Mediastinal contours appear normal. Heart size is normal. Bones and chest wall: No suspicious bony lesions. Overlying soft tissues appear unremarkable. IMPRESSION: 1. No acute cardiopulmonary disease. Dictated by: Feliz Caballero M.D. on 02/19/2019 at 19:02 Approved by: Feliz Caballero M.D. on 02/19/2019 at 19:03 ECG Data Interpretation: EKG is normal sinus rhythm rate [53] and free of any signs of ischemia or ectopy. No ST segmental elevation or depression. No T wave inversions MDM Narrative Medical decision making narrative: Multiple causes of chest pain considered including ND, PE, pneumothorax, pneumonia, aortic dissection, and pleurisy. Patient reports no radiation, no diaphoresis, no provocation with exertion, and no vomiting. EKG is nonischemic and troponin is negative Multiple etiologies for patient's symptoms considered including: [Cardiac versus pulmonary embolism (thought less likely given negative dimer) versus pulmonary versus other] Patient's symptoms improved or duration of stay with above-stated therapies. Findings and discharge diagnosis discussed with patient/family followed by verbalization of understanding Return precautions discussed with patient/family whom verbalize understanding. Discharge Plan Departure Patient Disposition: Home Clinical Impression: Atypical chest pain Discharge Date/Time: 02/19/19 19:49 Instructions: DI for Atypical Chest Pain Activity Restrictions/Additional Instructions: *You have been diagnosed with [atypical chest pain] *What to do: *Take medications as directed *Follow up with your primary care provider in 2-3 days, call for an appointment. Let them know you were seen in the Emergency Department and that we ask that you be seen in follow up *Return to ER if you should have any new, worsening or concerning symptoms Prescriptions: No Action [estradiol pearles] 10 mcg Vaginal HS Qty: 90 RF: 0 alprazolam 0.25 mg tablet 0.25 mg PO BID PRN (Reason: severe anxiety) Qty: 60 RF: 0 lamotrigine 100 mg tablet 150 mg PO DAILY RF: 0 Referrals: Darvin Bagley MD [Primary Care Provider] -
--- NOTE | 2019-02-19 18:48 | DI.RAD.S_ITS ---
PROCEDURE: XR CHEST 1V INDICATIONS: chest fullness, SOB TECHNIQUE: One view of the chest was acquired. COMPARISON: None. FINDINGS: Surgical changes and devices: None. Lungs and pleura: Lungs are clear. No pleural effusions or pneumothorax. Mediastinum: Mediastinal contours appear normal. Heart size is normal. Bones and chest wall: No suspicious bony lesions. Overlying soft tissues appear unremarkable. IMPRESSION: 1. No acute cardiopulmonary disease. Dictated by: Feliz Caballero M.D. on 02/19/2019 at 19:02 Approved by: Feliz Caballero M.D. on 02/19/2019 at 19:03
[2019-02-19 18:59] LABS: Add Manual Diff / Slide Review NO; Basophils Absolute Auto 100 /uL (0-100); Basophils Percent Auto 0.7 % (0-2); Eosinophils Absolute Auto 100 /uL (0-450); Eosinophils Percent Auto 1.9 % (2-4); Hematocrit 38.7 % (36-46); Hemoglobin 13.6 g/dL (12.0-16.0); Lymphocytes Absolute Auto 2100 /uL (1100-4500); Lymphocytes Percent Auto 28.5 % (25-40); Mean Corpuscular HGB Conc 35.1 % (30-36); Mean Corpuscular Hemoglobin 27.8 PG (26-34); Mean Corpuscular Volume 79.3 fL (80-100); Monocytes Absolute Auto 700 /uL (0-900); Neutrophils Absolute Auto 4500 /uL (1500-7000); Neutrophils Percent Auto 59.9 % (50-75); Platelet Count 249 X10^3/uL (150-400); Red Blood Cell Count 4.88 X10^6/uL (4.0-5.2); Red Cell Distribution Width 13.2 % (11.6-14.8); White Blood Cell Count 7.5 X10^3/uL (4.5-11.0)
[2019-02-19 19:09] LABS: Alanine Aminotransferase 18 IU/L (<35); Albumin 4.1 g/dL (3.5-5.0); Albumin Globulin Ratio 1.4 (1.0-2.8); Alkaline Phosphatase 62 U/L (38-126); Aspartate Aminotransferase 27 IU/L (14-36); Bilirubin Total 0.4 mg/dL (0.2-1.3); Blood Urea Nitrogen 21 mg/dL (7-17); Calcium 9.1 mg/dL (8.4-10.2); Carbon Dioxide 27 mmol/L (22-32); Chloride 104 mmol/L (98-107); Creatine Kinase 126 U/L (30-135); Globulin 2.9 g/dL (1.7-4.1); Glucose 96 mg/dL (80-110); HEMOLYSIS < 15 (0-50); Lipase 120 U/L (23-300); Potassium 3.8 mmol/L (3.4-5.1); Sodium 137 mmol/L (137-145)
[2019-02-19 19:11] LABS: D Dimer < 200 ng/mL (<230)
--- NOTE | 2019-02-19 19:13 | PC.NURSE ---
pt concerned because she has a history of hypoglycemia and hasn't eaten since 2pm. VALENTE Palma is aware
[2019-02-19 19:18] LABS: B Type Natriuretic Peptide < 100 (<100)
[2019-02-19 19:21] LABS: Troponin I < 0.012 ng/mL (0.01-0.034)
[2019-02-19 19:24] LABS: Creatine Kinase MB 1.28 ng/mL (<2.37)
[2019-02-19 19:30] VITALS: BP 134/76; PULSE 54; RESP 18; O2SAT 97
== END 2019-02-19 19:49 | disposition home or self-care (01) ==
PROVIDERS: Emergency Provider Emergency Medicine; PCP Family Medicine
DX: R07.89 Other chest pain (principal); R06.02 Shortness of breath
CPT/HCPCS: 36415; 71045; 80053; 82550; 82553; 83690; 83880; 84484; 85025; 85379; 93005; 99282; 99285

== ENCOUNTER → 2021-03-09 08:39 | Outpatient (CLI) | payer MEDICARE, OTHER, SELFPAY ==
--- NOTE | 2021-03-09 | DI.MRI.S_ITS ---
PROCEDURE: MR LUMBAR SPINE WO CON INDICATIONS: Anesthesia of skin TECHNIQUE: Noncontrast sagittal T1 spin echo and T2 fast echo, coronal T2, sagittal STIR, axial T1 and T2 fast spin echo through the lumbar spine. COMPARISON: None. FINDINGS: Image quality: Excellent. Alignment and Curvature: No plain films are available for comparison, for numbering purposes. Thus, for the purposes of this examination, 5 lumbar type vertebral bodies will be presumed, as denoted on the montage panel. This should be confirmed and correlated with plain films, prior to any lumbar spinal intervention.There is loss of normal lumbar lordosis. Mild grade 1 retrolisthesis of L1 on L2, L2 on L3, L3 on L4, and L4 on L5. Mild rightward curvature of the mid lumbar spine. Bone Marrow: Marrow is of normal overall signal. No acute vertebral body compression fractures. Mild reactive signal throughout the endplates of the lumbar and lower thoracic spine. L4 hemangioma. Spinal Cord: Conus medullaris terminates at the mid L1 level. Visualized cord demonstrates normal signal and size. Paraspinous Soft Tissues: No paravertebral masses. T12-L1: Mild disc height loss and desiccation. Mild diffuse disc bulge. Mild facet and ligamentum flavum hypertrophy. Mild canal stenosis. Mild bilateral foraminal stenosis. L1-L2: Severe disc height loss and desiccation. Mild diffuse disc bulge/osteophyte. Mild facet and ligamentum flavum hypertrophy. Mild canal stenosis. Mild bilateral foraminal stenosis. L2-L3: Severe disc height loss and desiccation. Mild diffuse disc bulge. Mild facet and ligamentum flavum hypertrophy. Mild canal stenosis. Mild bilateral foraminal stenosis. L3-L4: Severe disc height loss and desiccation. Mild diffuse disc bulge. Mild facet and ligamentum flavum hypertrophy. Mild canal stenosis. Mild bilateral foraminal stenosis. L4-L5: Moderate disc height loss and desiccation. Moderate diffuse disc bulge with superimposed broad-based right posterolateral protrusion. Mild facet and ligamentum flavum hypertrophy. Mild canal stenosis. Moderate right and mild left foraminal stenosis. L5-S1: Mild disc height loss. Moderate disc desiccation. Mild diffuse disc bulge. Mild facet and ligamentum flavum hypertrophy. Mild canal stenosis. Mild bilateral foraminal stenosis. IMPRESSION: 1. Multilevel degenerative disc and facet disease, as well as ligamentum flavum hypertrophy and epidural lipomatosis. 2. Mild multilevel canal stenosis. 3. Multilevel foraminal stenoses, worst at L4-L5 on the right where there is moderate foraminal stenosis. 4. 5 lumbar type vertebral bodies were presumed for the current report. Plain films of the lumbar spine are recommended for confirmation, prior to any lumbar spinal intervention. Dictated by: Lo Nicole M.D. on 03/09/2021 at 8:47 Approved by: Lo Nicole M.D. on 03/09/2021 at 8:50
== END ==
PROVIDERS: Family Provider Family Medicine; PCP Family Medicine; Referring Provider Family Medicine; Visit Provider Family Medicine
DX: M51.36 Other intervertebral disc degeneration, lumbar region (principal); M51.37 Other intervertebral disc degeneration, lumbosacral region; M48.061 Spinal stenosis, lumbar region without neurogenic claudication; M48.07 Spinal stenosis, lumbosacral region; R20.0 Anesthesia of skin
CPT/HCPCS: 72148

== ENCOUNTER → 2021-05-10 08:38 | Outpatient (CLI) | payer MEDICARE, OTHER, SELFPAY ==
[2021-05-10 19:50] LABS: COVID19 - ORCAS (NP or Nasal) Negative (Negative)
== END ==
PROVIDERS: Family Provider Family Medicine; PCP Family Medicine; Visit Provider Physician Assistant Medical
DX: Z20.822 Contact with and (suspected) exposure to COVID-19 (principal)
CPT/HCPCS: U0003

== ENCOUNTER 2021-10-03 11:00 | Emergency (ER) | payer MEDICARE, OTHER, SELFPAY ==
[2021-10-03 11:05] VITALS: BP 150/85; PULSE 76; RESP 14; TEMP 36.9; O2SAT 97; BMI 23.7
--- NOTE | 2021-10-03 11:09 | DI.RAD.S_ITS ---
PROCEDURE: XR FINGER LT MIN 2V INDICATIONS: tip of finger bit off by a raccoon TECHNIQUE: AP hand, 2 views of the 2nd finger(s) acquired. COMPARISON: None. FINDINGS: Bones: Decreased mineralization. There has been amputation of the distal 2nd phalanx tuft. The joint is intact with mild osteoarthritic changes. Soft tissues: The distal 2nd digit is bandaged. There is been irregular amputation of the distal soft tissue. No radiodense foreign bodies or soft tissue gas present. IMPRESSION: 1. Soft tissue and bony amputation of the distal 2nd digit without evidence of retained foreign body or dislocation. Dictated by: Emilee Tran M.D. on 10/03/2021 at 11:45 Approved by: Emilee Tran M.D. on 10/03/2021 at 11:47
--- NOTE | 2021-10-03 11:44 | ED_ITS ---
HPI - Animal Bite General Chief Complaint: Animal Bite Stated Complaint: Raccoon bit tip of finger off Time Seen by Provider: 10/03/21 11:44 Source: patient Mode of arrival: Ambulatory History of Present Illness HPI narrative: Patient 71-year-old healthy female who presents with right index finger bite. She says she has trapping raccoon, because they bit her dog. She trapped large raccoon and bit off the tip of her finger. She has a lot of pain at the tip. She is not on blood thinners. Related Data Home Medications Medication Instructions Recorded Confirmed lamotrigine 100 mg tablet 150 mg PO DAILY 09/09/18 04/24/19 Previous Rx's Medication Instructions Recorded alprazolam 0.25 mg tablet 0.25 mg PO BID PRN severe anxiety 02/26/18 #60 tabs COMP ESTRADIOL VAGINAL CREAM See Rx Instructions .Route 04/27/19 .COMPLEX #30 grams amoxicillin 875 mg-potassium 1 tab PO BID #20 tabs 10/03/21 clavulanate 125 mg tablet hydrocodone 5 mg-acetaminophen 325 1 tab PO Q6H PRN pain #10 tabs 10/03/21 mg tablet Allergies Allergy/AdvReac Type Severity Reaction Status Date / Time No Known Drug Allergies Allergy Verified 10/03/21 11:10 Review of Systems Review of Systems Narrative: GENERAL: Denies chills,fever HEENT: Denies throat pain RESPIRATORY: Denies dyspnea, cough, wheezing CARDIOVASCULAR: Denies chest pain, palpitations GASTROINTESTINAL: Denies nausea, vomiting MUSCULOSKELETAL: Denies extremity pain, injury SKIN: No rash, no laceration, no pruritus NEUROLOGIC: Denies weakness, dizziness, headache, numbness 8 point review of systems is negative except for those stated above and HPI Patient History Surgical History History of carpal tunnel repair History of tonsillectomy Status post appendectomy Status post knee surgery Status post tubal ligation Family History Brother Age: 73 Heart attack Heart disease Grandfather Heart disease Mother Heart disease Social History Smoking Status: Never smoker Smoking Status: Never smoker alcohol intake frequency: holidays/special occasions only Substance Use Type: does not use Exam Initial Vital Signs Initial Vital Signs: Vital Signs Temperature 98.4 F 10/03/21 11:05 Pulse Rate 76 10/03/21 11:05 Respiratory Rate 14 10/03/21 11:05 Blood Pressure 150/85 H 10/03/21 11:05 Pulse Oximetry 97 10/03/21 11:05 Oxygen Delivery Method 10/03/21 11:05 GENERAL: Well-appearing, well-nourished and in no acute distress. CARDIOVASCULAR: peripheral pulses in tact, cap refill <2 sec RESPIRATORY: No respiratory distress, speaks in full sentences without difficulty EXTREMITIES: Normal range of motion, no clubbing or edema. Neurovascularly intact NEUROLOGICAL: Cranial nerves II through XII grossly intact. Normal gait and speech. SKIN: Right index finger is tip is completely amputated minimal nail bed remains. No swelling. Procedures Nerve Block Nerve Block 1: Local Anesthetic: lidocaine 1% Amount of anesthesia used (mL): 3 Side: left Nerve Blocks: digital Procedure Successful: Yes Patient Tolerated Procedure: Well and No complications Complications: none Course Orders Ordered: ED Orders 10/03/21 11:09 XR finger LT min 2V Stat Discontinued Medications Hydrocodone Bitart/Acetaminophen (Hydrocodone/Acet 5/325 Tablet) 1 tab PO NOW ONE Stop: 10/03/21 14:08 Last Admin: 10/03/21 14:32 Dose: 1 tab Documented By: JATIN Diphtheria/Tetanus/Acell Pertussis (Tet,Diph,Pertuss(Acell),Vac/Pf 0.5 Ml Syringe) 0.5 ml IM .ONCE ONE Stop: 10/03/21 11:57 Last Admin: 10/03/21 12:20 Dose: 0.5 ml Documented By: SOLO Lidocaine HCl (Lidocaine 2% Inj Mdv) 1 ml SUBCUT NOW ONE Stop: 10/03/21 12:16 Last Admin: 10/03/21 12:20 Dose: 1 ml Documented By: SOLO Rabies Immune Globulin (Rabies Immune Globulin 300 Unit/Ml 1ml Vial) 1,216 unit 20 unit/kg (1216 unit) IM NOW ONE Stop: 10/03/21 11:57 Last Admin: 10/03/21 12:22 Dose: 1,216 unit Documented By: SOLO Rabies Vaccine (Rabies Vaccine (Rabavert) 2.5 Units Syringe) 2.5 units IM .ONCE ONE Stop: 10/03/21 11:57 Last Admin: 10/03/21 12:22 Dose: 2.5 units Documented By: SOLO Vital Signs Vital signs: Vital Signs - 8 hr 10/03/21 14:07 Pulse Rate 74 Respiratory Rate 18 Blood Pressure 133/78 Pulse Oximetry 99 Oxygen Delivery Method Room Air MDM - Animal Bite MDM Narrative Medical decision making narrative: Patient has a distal amputation of left index finger. This is after an animal bite. She is getting the rabies immunoglobulin and vaccine. Pain Antibiotics. Dr. Sears orthopedics has been consulted no need for surgery or repair at this time. Recommend aggressively irrigated, and wet to dry dressing Discharge Plan Departure Patient Disposition: Home Clinical Impression: Bitten by raccoon, initial encounter Instructions: DI for Animal Bites Activity Restrictions/Additional Instructions: *You have been diagnosed with raccoon bite *What to do: I recommend that you stop trapping raccoon's You will need rabies vaccine on the following date: Go to [facility] for injections ( I recommend you call today to be sure it is in place) 10/06/21 10/10/21 10/17/21 Apply dressing wet to dry dressing at least once a day. Your finger will heal on its own. Elevate and ice. Please keep clean. *Continue to take medications as directed--> SENT TO [facility] Augmentin 875mg twice a day for 10 days [place] 1 tablet every 6 hours if needed for severe pain *Follow up with your primary care provider in 2-3 days or call [phone] Follow-up with Orthopedics in about 1 week, call them today *Return to ER if you should have increasing pain swelling redness, or any new, worsening or concerning symptoms Prescriptions: New hydrocodone-acetaminophen 5-325 mg tablet 1 tab PO Q6H PRN (Reason: pain) Qty: 10 0RF amoxicillin-pot clavulanate 875-125 mg tablet 1 tab PO BID Qty: 20 0RF No Action alprazolam 0.25 mg tablet 0.25 mg PO BID PRN (Reason: severe anxiety) Qty: 60 0RF Rx Instructions: Take 1 tab twice daily as needed. Must keep appt 04/22/18 for further fills COMP ESTRADIOL VAGINAL CREAM 0.0125 % cream See Rx Instructions .ROUTE .COMPLEX Qty: 30 1RF Rx Instructions: APPLY 1 GM TO THE VAGINA AT BEDTIME FOR 14 NIGHTS THEN 2 TIMES PER WEEK. lamotrigine 100 mg tablet 150 mg PO DAILY Referrals: [facility] [Provider Group] Darvin Bagley MD [Primary Care Provider] - Visit Report Forms: Patient Portal/API
[2021-10-03] MEDS: TET,DIPH,PERTUSS(ACELL),VAC/PF 0.5 ML SYRINGE IM (12:20)
[2021-10-03] MEDS: LIDOCAINE 2% INJ MDV 1 ML SUBCUT (12:20)
[2021-10-03] MEDS: RABIES VACCINE (RABAVERT) 2.5 UNITS SYRINGE IM (12:22)
[2021-10-03] MEDS: RABIES IMMUNE GLOBULIN 300 UNIT/ML 1mL VIAL 1216 UNIT IM (12:22)
[2021-10-03 14:07] VITALS: BP 133/78; PULSE 74; RESP 18; O2SAT 99
--- NOTE | 2021-10-03 14:25 | PC.NURSE ---
Patient wound was irrigated with saline, providone, and injected with rabies IG, per order. Patient's finger was numbed with digital block prior to procedure and she tolerated this well. Patient's finger was subsequently wrapped with xeroform and moist gauze and tube gauze, per provider order. Patient given vaccines, per order. [facility] contacted and spoke with Syed Minor. Faxed info to him at [phone] for further potential rabies exposure investigation.
[2021-10-03] MEDS: HYDROCODONE/ACET 5/325 TABLET 1 TAB PO (14:32)
== END 2021-10-03 14:36 | disposition home or self-care (01) ==
PROVIDERS: Emergency Provider Emergency Medicine; Family Provider Family Medicine; PCP Family Medicine
DX: S61.250A Open bite of right index finger without damage to nail, initial encounter (principal); W55.51XA Bitten by raccoon, initial encounter; Z23 Encounter for immunization
CPT/HCPCS: 64450; 73140; 90375; 90471; 90675; 96372; 99283; 99284; 90715

== ENCOUNTER 2021-10-06 09:24 | Emergency (ER) | payer MEDICARE, OTHER, SELFPAY ==
[2021-10-06 09:33] VITALS: BP 123/59; PULSE 55; RESP 18; TEMP 36.1; O2SAT 100
[2021-10-06] MEDS: RABIES VACCINE (RABAVERT) 2.5 UNITS SYRINGE IM (10:06)
--- NOTE | 2021-10-06 10:21 | ED.RECABL ---
HPI - Recheck/Abnormal Lab/Rx General Chief Complaint: Recheck/Abnormal Lab/Rx Stated Complaint: bit by racoon missing tip of finger Time Seen by Provider: 10/06/21 10:12 Source: patient Mode of arrival: Ambulatory Limitations: no limitations History of Present Illness HPI narrative: Patient trapped a raccoon yesterday. The raccoon bit to her left index finger. Initial care was provided by his PCM. She is on antibiotics. Rabies series has been initiated, she was here for a shot 2. She has no fever chills, no drainage from the wound site. She is right-hand dominant. She had no reaction to the initial rabies treatments. Related Data Home Medications Medication Instructions Recorded Confirmed lamotrigine 100 mg tablet 150 mg PO DAILY 09/09/18 04/24/19 Previous Rx's Medication Instructions Recorded alprazolam 0.25 mg tablet 0.25 mg PO BID PRN severe anxiety 02/26/18 #60 tabs COMP ESTRADIOL VAGINAL CREAM See Rx Instructions .Route 04/27/19 .COMPLEX #30 grams amoxicillin 875 mg-potassium 1 tab PO BID #20 tabs 10/03/21 clavulanate 125 mg tablet hydrocodone 5 mg-acetaminophen 325 1 tab PO Q6H PRN pain #10 tabs 10/03/21 mg tablet Allergies Allergy/AdvReac Type Severity Reaction Status Date / Time No Known Drug Allergies Allergy Verified 10/06/21 09:39 Review of Systems Constitutional Constitutional: Reports chills and Reports fever(s) Musculoskeletal Comments: Bite to the tip of the left index finger. Integumentary/Breasts Comments: No other skin lesions Patient History Surgical History History of carpal tunnel repair History of tonsillectomy Status post appendectomy Status post knee surgery Status post tubal ligation Family History Brother Age: 73 Heart attack Heart disease Grandfather Heart disease Mother Heart disease Social History Smoking Status: Never smoker Smoking Status: Never smoker alcohol intake frequency: holidays/special occasions only Substance Use Type: does not use Exam Initial Vital Signs Initial Vital Signs: Vital Signs Temperature 97.0 F L 10/06/21 09:33 Pulse Rate 55 L 10/06/21 09:33 Respiratory Rate 18 10/06/21 09:33 Blood Pressure 123/59 L 10/06/21 09:33 Pulse Oximetry 100 10/06/21 09:33 Oxygen Delivery Method 10/06/21 09:33 Const General: cooperative, healthy appearing and comfortable Skin General: no rashes or lesions noted (Other than the left index finger.) Neuro General: patient alert, patient oriented x3, no meningeal signs and no focal motor deficits Extrem Other: Avulsion to the tip of the left index finger, including the distal nail bed. There is no active bleeding. There is no drainage. There is no suggestion of infection. There is no bone exposure. Course Course Course Narrative: The wound is cleansed with Hibiclens and saline. A new dressing is applied. Her rabies immunization is given. Orders Ordered: Discontinued Medications Rabies Vaccine (Rabies Vaccine (Rabavert) 2.5 Units Syringe) 2.5 units IM .ONCE ONE Stop: 10/06/21 09:28 Last Admin: 10/06/21 10:06 Dose: 2.5 units Documented By: CTS Vital Signs Vital signs: Vital Signs - 8 hr 10/06/21 09:33 Temperature 97.0 F L Pulse Rate 55 L Respiratory Rate 18 Blood Pressure 123/59 L Pulse Oximetry 100 Oxygen Delivery Method Room Air Discharge Plan Departure Patient Disposition: Home Clinical Impression: Bitten by raccoon, subsequent encounter Instructions: Animal Bites Activity Restrictions/Additional Instructions: Continue wound changes as previously directed. Finish your antibiotics. Finish the rabies series as prescribed. Follow-up with your PCM regarding wound management. Prescriptions: No Action alprazolam 0.25 mg tablet 0.25 mg PO BID PRN (Reason: severe anxiety) Qty: 60 0RF Rx Instructions: Take 1 tab twice daily as needed. Must keep appt 04/22/18 for further fills COMP ESTRADIOL VAGINAL CREAM 0.0125 % cream See Rx Instructions .ROUTE .COMPLEX Qty: 30 1RF Rx Instructions: APPLY 1 GM TO THE VAGINA AT BEDTIME FOR 14 NIGHTS THEN 2 TIMES PER WEEK. lamotrigine 100 mg tablet 150 mg PO DAILY hydrocodone-acetaminophen 5-325 mg tablet 1 tab PO Q6H PRN (Reason: pain) Qty: 10 0RF amoxicillin-pot clavulanate 875-125 mg tablet 1 tab PO BID Qty: 20 0RF Referrals: Darvin Bagley MD [Primary Care Provider] -
== END 2021-10-06 10:51 | disposition home or self-care (01) ==
PROVIDERS: Emergency Provider Emergency Medicine; Family Provider Family Medicine; PCP Family Medicine
DX: Z23 Encounter for immunization (principal); W55.51XD Bitten by raccoon, subsequent encounter
CPT/HCPCS: 90471; 90675; 99283

== ENCOUNTER → 2022-06-17 08:34 | Outpatient (CLI) | payer MEDICARE, OTHER, SELFPAY ==
--- NOTE | 2022-06-17 08:36 | DI.MRI.S_ITS ---
PROCEDURE: MR CERVICAL SPINE WO CON INDICATIONS: Radiculopathy, lumbar region and cervical region TECHNIQUE: Noncontrast sagittal T1 spin echo and T2 fast spin echo, sagittal STIR, foraminal oblique sagittal T2 fast spin echo, and axial gradient echo or T2 fast spin echo through the cervical spine. COMPARISON: None. FINDINGS: Image quality: Excellent. Alignment and Curvature: There is normal bony alignment. Bone Marrow: Marrow demonstrates normal overall signal. Spinal Cord: Visualized spinal cord has normal size and signal. No cerebellar tonsillar herniation. Paraspinous Soft Tissues: No paravertebral masses. Prevertebral soft tissues are normal in thickness. C2-C3: No significant disc bulge. The foramina and central canal are patent. C3-C4: Diffuse central and right disc bulges causing mild right foraminal stenosis. The left foramen and central canal are patent. C4-C5: No significant disc bulge. The foramina and central canal are patent. C5-C6: Diffuse disc bulge with disc space narrowing and disc osteophytes with uncovertebral hypertrophy cause moderate left foraminal stenosis. The right foramen is patent. The central canal has mild stenosis. C6-C7: Diffuse disc bulge with disc space narrowing and disc osteophytes with uncovertebral hypertrophy cause moderate left foraminal stenosis. The right foramen is patent. C7-T1: Diffuse disc bulge with bilateral paracentral disc bulges cause mild right and moderate left foraminal stenosis. The central canal is patent. IMPRESSION: 1. Multilevel cervical spondylosis causing foraminal and central canal stenosis as detailed above. 2. No abnormal cord signal. 3. No acute abnormality. Dictated by: Lui Valdivia M.D. on 06/18/2022 at 8:59 Approved by: Lui Valdivia M.D. on 06/18/2022 at 9:04
--- NOTE | 2022-06-17 08:36 | DI.MRI.S_ITS ---
PROCEDURE: MR LUMBAR SPINE WO CON INDICATIONS: Radiculopathy, lumbar region and cervical region TECHNIQUE: Noncontrast sagittal T1 spin echo and T2 fast echo, sagittal STIR, and T2 fast spin echo through the lumbar spine. In cases with scoliosis, additional coronal T2 fast spin echo may be performed. COMPARISON: [facility], , MR LUMBAR SPINE WO CON, 03/09/2021, 8:51. FINDINGS: Image quality: Excellent. Alignment and Curvature: Rightward curvature of the lumbar spine with a James angle of 11?. Bone Marrow: Benign hemangioma of L4. Endplate edema posteriorly at L4-5 consistent with inflammatory Modic 1 changes. Marrow is otherwise of normal overall signal. No acute vertebral body compression fractures. Spinal Cord: Conus medullaris terminates at the L1 level. Visualized cord demonstrates normal signal and size. Paraspinous Soft Tissues: No paravertebral masses. T12-L1: Diffuse disc bulge with no significant foraminal or central canal stenosis. L1-L2: Diffuse disc bulge with uncovertebral hypertrophy and facet hypertrophy cause moderate bilateral foraminal stenosis. The central canal is patent. L2-L3: No significant disc bulge however there may be a small central annular tear. The foramina and central canal are patent. L3-L4: Diffuse disc bulge, disc space narrowing, disc osteophytes, and facet hypertrophy cause mild bilateral foraminal stenosis. Mild central canal stenosis. L4-L5: Diffuse disc bulge, disc space narrowing, and disc osteophytes cause moderate central canal stenosis. There is encroachment of the right lateral recess which impinges upon the exiting L5 nerve root on the right. The central canal has moderate stenosis. L5-S1: Diffuse disc bulge and facet hypertrophy cause moderate bilateral foraminal stenosis. The central canal is patent. IMPRESSION: 1. Multilevel degenerative disc disease and facet arthrosis causing foraminal and central canal stenosis as detailed above. 2. No abnormal cord signal. 3. No acute abnormality. Dictated by: Lui Valdivia M.D. on 06/18/2022 at 9:05 Approved by: Lui Valdivia M.D. on 06/18/2022 at 9:22
== END ==
PROVIDERS: Family Provider Family Medicine; PCP Family Medicine; Referring Provider Family Medicine; Visit Provider Family Medicine
DX: M54.16 Radiculopathy, lumbar region (principal); M54.12 Radiculopathy, cervical region; M51.36 Other intervertebral disc degeneration, lumbar region; M48.061 Spinal stenosis, lumbar region without neurogenic claudication; M48.02 Spinal stenosis, cervical region; M47.812 Spondylosis without myelopathy or radiculopathy, cervical region
CPT/HCPCS: 72141; 72148

== ENCOUNTER → 2023-04-29 14:12 | Outpatient (CLI) | payer MEDICARE, OTHER, SELFPAY ==
--- NOTE | 2023-04-29 14:15 | DI.CT.S_ITS ---
PROCEDURE: CT CHEST HIGH RESOLUTION INDICATIONS: ABNORMAL CHEST XRAY TECHNIQUE: Noncontrast 1.0 and 5.0 mm thick contiguous axial sections from the pulmonary apex to the posterior costophrenic angles, with 7 mm thick coronal and sagittal MIP reformats. 1 mm thick dynamic expiratory images acquired through the upper, mid, and lower lungs. 1.0 mm thick axial sections acquired from the piedad to the posterior costophrenic angles in the prone end-inspiration position. For radiation dose reduction, the following was used: automated exposure control, adjustment of mA and/or kV according to patient size. COMPARISON: [facility] ([place]), CR, XR CHEST 2V, 04/24/2023, 14:54. FINDINGS: Image quality: Diagnostic. Lower Neck: No enlarged lymph nodes. Thyroid: No thyroid nodules which require sonographic follow up, per consensus guidelines. Axillae: No enlarged lymph nodes. Chest Wall: Unremarkable. Bones: Unremarkable. Lungs and Pleura: No pneumothorax or pleural effusions. Anterior left upper lobe peribronchial ground-glass with smooth interstitial thickening. A few solid pulmonary nodules, largest measuring 5 mm in the anterior left upper lobe (series 3, image 144). Mild bronchial thickening, predominantly within the upper lobes, left greater than right. Heart: Heart size is normal. No pericardial effusion. Thoracic Vessels: The aorta and pulmonary arteries demonstrate normal size. Mediastinum and Laura: No enlarged lymph nodes. Esophagus: No wall thickening. No hiatal hernia. Upper Abdomen: Visualized upper abdomen solid organs and bowel loops appear normal. IMPRESSION: No evidence of interstitial lung disease. Segmental ground-glass and smooth interstitial thickening of the left upper lobe, concerning for atypical infection. A few solid pulmonary nodules, measuring no greater than 5 mm. Consider 12 month follow-up if at high risk for developing lung cancer, per Fleischner Society guidelines. Dictated by: Freddy Abdul M.D. on 04/29/2023 at 15:18 Approved by: Freddy Abdul M.D. on 04/29/2023 at 15:21
== END ==
PROVIDERS: Family Provider Family Medicine; PCP Family Medicine; Referring Provider Family Medicine; Visit Provider Family Medicine
DX: R93.89 Abnormal findings on diagnostic imaging of other specified body structures (principal); R91.8 Other nonspecific abnormal finding of lung field
CPT/HCPCS: 71250

== ENCOUNTER → 2023-09-30 09:18 | Outpatient (CLI) | payer MEDICARE, OTHER, SELFPAY ==
--- NOTE | 2023-09-30 09:20 | DI.CT.S_ITS ---
PROCEDURE: CT CHEST HIGH RESOLUTION INDICATIONS: Cough, interstitial lung disease, eval for change TECHNIQUE: Noncontrast 1.0 and 5.0 mm thick contiguous axial sections from the pulmonary apex to the posterior costophrenic angles, with 7 mm thick coronal and sagittal MIP reformats. 1 mm thick dynamic expiratory images acquired through the upper, mid, and lower lungs. 1.0 mm thick axial sections acquired from the piedad to the posterior costophrenic angles in the prone end-inspiration position. For radiation dose reduction, the following was used: automated exposure control, adjustment of mA and/or kV according to patient size. COMPARISON: [facility], CT, CT CHEST HIGH RESOLUTION, 04/29/2023, 14:22. FINDINGS: Image quality: Diagnostic Lungs and pleura: Previously seen septal thickening and ground-glass opacities in the left upper lobe has resolved. [id number] areas of air trapping seen on expiratory views. Possible basal atelectasis, less conspicuous on prone images. Small Bochdalek's hernia on the right. No pleural effusions. Pulmonary nodules are present, the largest index nodule in the right lower lobe measures 5-6 mm (3/144). Stable. Mediastinum, heart, and esophagus: Mild distal esophageal wall thickening, nonspecific. Mild fluid anterior to the pericardium, also nonspecific and stable. No pathologic lymph nodes by size criteria Chest wall and thyroid: Unremarkable thyroid and chest wall Upper abdomen: No gross abnormality on these noncontrast images Bones: No acute or suspicious osseous finding. 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 Otherwise, no significant evidence of interstitial lung disease. Left upper lobe segmental ground-glass opacities have resolved. Small pulmonary nodules again seen, largest measuring up to 5-6 mm. Consider continued follow-up to establish 2 year stability. (High-resolution protocol is not needed for nodule follow-up) Dictated by: Fredy Ybarra M.D. on 09/30/2023 at 11:17 Approved by: Fredy Ybarra M.D. on 09/30/2023 at 11:23
== END ==
PROVIDERS: Family Provider Family Medicine; PCP Family Medicine; Referring Provider Internal Medicine Critical Care Medicine; Visit Provider Internal Medicine Critical Care Medicine
DX: J47.9 Bronchiectasis, uncomplicated (principal); R91.8 Other nonspecific abnormal finding of lung field
CPT/HCPCS: 71250